=== PATIENT | male | born 1945 | race Caucasian/White ===

== ENCOUNTER 2018-04-17 12:52 | Outpatient (CLI) | payer MEDICARE ==
[2018-04-17 15:17] LABS: Hemoglobin 13.1 g/dL (14.0-18.0); Mean Corpuscular HGB CONC 35.7 g/dL (32.0-36.0); Mean Corpuscular Hemoglobin 32.4 pg (27.0-31.0); Mean Corpuscular Volume 90.9 fL (78.0-98.0); Mean Platelet Volume 6.3 fL (7.4-10.4); Platelet Count 378 thou/uL (130-400); RBC Distribution Width 11.4 % (11.5-14.5); Red Blood Cell (RBC) Count 4.04 mill/uL (4.70-6.10); White Blood Cell (WBC) Count 7.3 thou/uL (4.8-10.8)
[2018-04-17 15:24] LABS: INR-International Normal Ratio 0.9; PTT 33.1 SEC (22.9-36.1); Prothrombin Time 12.6 SEC (12.0-14.7)
[2018-04-17 15:32] LABS: Bilirubin Negative (Negative); Blood, Urine Negative (Negative); Clarity CLEAR (Clear); Glucose, Urine (Dipstick) Negative (Negative); Leukocyte Negative (Negative); Nitrite Negative (Negative); Protein, Urine (Dipstick) Negative (Neg-Trace); Specific Gravity, Urine 1.022 (1.002-1.036); Urobilinogen 0.2 mg/dL (0.2-1.0)
[2018-04-17 15:35] LABS: Anion Gap 15 mmol/L (10-20); BUN (Urea Nitrogen) 15 mg/dL (8.4-25.7); Calc. Creatinine Clearance 0 mL/min (70-130); Calcium 9.8 mg/dL (7.8-10.44); Carbon Dioxide 26 mmol/L (23-31); Chloride 95 mmol/L (98-107); Estimated GFR-MDRD 67; Glucose 112 mg/dL (83-110); Potassium 4.8 mmol/L (3.5-5.1); Sodium 131 mmol/L (136-145)
[2018-04-17 15:37] LABS: Bacteria/HPF None Seen HPF (None Seen); RBC/HPF 0-3 HPF (0-3); Squamous Epithelial 0-3 HPF (0-3); WBC/HPF 0-3 HPF (0-3)
[2018-04-17 15:44] LABS: Pathc Cast-AUWi Flag 3.19 (0-2.49)
[2018-04-17 15:53] LABS: Hyaline Casts/LPF 0-3 HYALINE CAST LPF (0-3 Hyaline); Manual Microscopic Reviewed? No Path Casts Seen; Renal Epithelial None Seen HPF (0-3); Transitional Epithelial NONE SEEN HPF (0-3)
--- NOTE | 2018-04-21 10:06 | EKG ---
Test Reason : Blood Pressure : / mmHG Vent. Rate : 075 BPM Atrial Rate : 075 BPM P-R Int : 170 ms QRS Dur : 144 ms QT Int : 406 ms P-R-T Axes : 066 -76 030 degrees QTc Int : 453 ms Normal sinus rhythm Right bundle branch block Left anterior fascicular block Bifascicular block Abnormal ECG No previous ECGs available Confirmed by DR. Gunjan PATTEN ([id number]) on 04/21/2018 10:06:19 AM Referred By: HARSH Confirmed By:DR. Gunjan PATTEN
== END 2018-04-17 12:53 | disposition home or self-care (01) ==
LOC: LABBT 12:52
PROVIDERS: ATTEND Urology
DX: Z01.818 Encounter for other preprocedural examination (principal); I25.10 Atherosclerotic heart disease of native coronary artery without angina pectoris; N40.1 Benign prostatic hyperplasia with lower urinary tract symptoms; N52.01 Erectile dysfunction due to arterial insufficiency; E11.59 Type 2 diabetes mellitus with other circulatory complications; Z95.5 Presence of coronary angioplasty implant and graft
CPT/HCPCS: 80048; 81001; 85027; 85610; 85730; 87086; 93005; 93010

== ENCOUNTER 2018-04-24 09:31 | Observation (INO) | payer MEDICARE ==
[2018-04-24] MEDS ORDERED: Ondansetron HCl/PF 4 MG/2 ML Vial ONE (10:23)
[2018-04-24] MEDS ORDERED: Dexamethasone 20 MG/5 ML VIAL ONE (10:23)
[2018-04-24] MEDS ORDERED: PROPOFOL 200 MG/20 ML VIAL ONE (10:23)
[2018-04-24] MEDS ORDERED: Lidocaine 1% PF 5 ML VIAL ONE (10:23)
[2018-04-24] MEDS ORDERED: Midazolam HCl 2 mg/2 ml Vial ONE (11:50)
[2018-04-24] MEDS ORDERED: Ketamine 50 MG/ML VIAL ONE (11:50)
[2018-04-24] MEDS ORDERED: Levofloxacin 500 mg/D5W 100 ml Premix Bag ONE (11:58)
[2018-04-24] MEDS ORDERED: Oxybutynin 5 MG TAB PO PRN (13:09)
[2018-04-24] MEDS ORDERED: Acetaminophen 500 MG TAB PO PRN (13:09)
[2018-04-24] MEDS ORDERED: diphenhydrAMINE 25 MG CAP PO PRN (13:09)
[2018-04-24] MEDS ORDERED: Hyoscyamine Sulfate SL 0.125 mg Tablet SL PRN (13:09)
[2018-04-24] MEDS ORDERED: Mag-Al 1200 mg/1200 mg/30 ML UDCUP PO PRN (13:09)
[2018-04-24] MEDS ORDERED: Bisacodyl 10 MG SUPP PR PRN (13:09)
[2018-04-24] MEDS ORDERED: Ondansetron HCl/PF 4 MG/2 ML Vial IVP PRN (13:09)
[2018-04-24] MEDS ORDERED: Morphine 4 MG/ML Carpuject IVP PRN (13:09)
[2018-04-24] MEDS ORDERED: traMADol HCl 50 MG TAB PO PRN (13:14)
[2018-04-24] MEDS ORDERED: Dextrose 5% in Water 1,000 ML IV PRN (13:15)
[2018-04-24] MEDS ORDERED: HumaLOG 300 UNITS/3 ML VIAL SC PRN (13:15)
[2018-04-24] MEDS ORDERED: Dextrose 50% Abboject 50 ML SYRINGE SLOW IVP PRN (13:15)
[2018-04-24] MEDS ORDERED: Acetaminophen 650 MG/20.3 ML UDCUP PO PRN (13:16)
--- NOTE | 2018-04-24 13:24 | OP ---
DATE OF PROCEDURE: 04/24/2018 SERVICE: Urology. SURGEON: Gm Santillan M.D. PREOPERATIVE DIAGNOSIS: Benign prostatic hypertrophy with bladder outlet obstruction. POSTOPERATIVE DIAGNOSIS: Benign prostatic hypertrophy with bladder outlet obstruction. PROCEDURE PERFORMED: Transurethral vaporization of the prostate. INDICATIONS FOR PROCEDURE: Mr. Desai is a 73-year-old white male with BPH and difficulty urinatin g. He is already on Flomax and finasteride without adequate relief of symptoms. He does not wish to remain on medications forever. We discussed surgical interventions and he has agreed to proceed for randall. He has received his cardiac clearance and has stopped his aspirin and Plavix. DESCRIPTION OF PROCEDURE: After identification of arm and verification of consent, the patient was b rought to the operating room, he was given general anesthesia with an LMA. He was then placed in tosha lalito lithotomy position, prepped and draped in usual sterile fashion. After appropriate timeout, a bobbi bricated 26 [place] resectoscope sheath with visual obturator was placed per urethra into the bladder. The visual obturator switched out for the bipolar button electrode. A full cystoscopy was performe d which did not demonstrate any abnormalities within the bladder. Both ureters were far away from th e bladder neck. Vaporization was started at the bladder neck and carried out to the verumontanum cir cumferentially until all the prostate tissue was removed. We were close to the capsule, but not to i t. Relaxing incisions were made at 5 and 7 o'clock on the bladder neck which was very tight. This c reated a very wide bladder neck. The intervening tissue was then vaporized out. Meticulous hemostas is was then performed and upon completion, the prostate was wide open with a resection of a large por tion of the majority of the prostate. There was good hemostasis. Both ureters were in the orthotopi c location unharmed. The resectoscope was then removed and a 20 [place] 3-way Ernee catheter was plac ed into the bladder with 30 mL of sterile water in the balloon. CBI was initiated and secured with a StatLock. The patient then awakened and taken to PACU for recovery in stable condition. COMPLICATIONS: None. ESTIMATED BLOOD LOSS: Minimal. RETAINED TUBES AND DRAINS: A 20 [place] 3-way Renee catheter on slow CBI. SPECIMENS: None. DISPOSITION: The patient will stay in the hospital overnight and be discharged tomorrow after his vo id trial.
[2018-04-24 16:11] VITALS: BMI 23.5
[2018-04-24] MEDS ORDERED: ICOSAPENT ETHYL 2 GM PO SCH (17:00)
[2018-04-24] MEDS ORDERED: Prevnar 13-Val Conj/PF 0.5 ML SYRINGE IM ONE (17:15)
[2018-04-24] MEDS: OXcarbazepine 300 MG TAB PO SCH (19:50)
[2018-04-24] MEDS: metFORMIN 500 MG TAB PO SCH (19:51)
[2018-04-24] MEDS: Ferrous Sulfate 325 MG TAB PO SCH (19:51)
[2018-04-24] MEDS ORDERED: Atorvastatin Calcium 40 MG TAB PO SCH (21:00)
[2018-04-24] MEDS ORDERED: Escitalopram Oxalate 20 mg Tablet PO SCH (21:00)
[2018-04-24] MEDS ORDERED: clonazePAM 0.5 MG TAB PO SCH (21:00)
[2018-04-25 05:40] LABS: #Lymphocytes 1.5 thou/uL (1.20-3.40); #Neutrophils 11.3 thou/uL (1.40-6.50); %Basophils 0.3 % (0.0-1.0); %Eosinophils 0.3 % (0.0-10.0); %Lymphocytes 10.6 % (21.0-51.0); %Monocytes 7.2 % (0.0-10.0); %Neutrophils 81.7 % (42.0-75.0); Hemoglobin 13.4 g/dL (14.0-18.0); Mean Corpuscular HGB CONC 33.6 g/dL (32.0-36.0); Mean Corpuscular Hemoglobin 30.4 pg (27.0-31.0); Mean Corpuscular Volume 90.4 fL (78.0-98.0); Mean Platelet Volume 6.2 fL (7.4-10.4); Platelet Count 421 thou/uL (130-400); RBC Distribution Width 11.3 % (11.5-14.5); Red Blood Cell (RBC) Count 4.39 mill/uL (4.70-6.10); White Blood Cell (WBC) Count 13.9 thou/uL (4.8-10.8)
[2018-04-25 05:47] LABS: Anion Gap 12 mmol/L (10-20); BUN (Urea Nitrogen) 14 mg/dL (8.4-25.7); Calc. Creatinine Clearance 97 mL/min (70-130); Calcium 9.7 mg/dL (7.8-10.44); Carbon Dioxide 26 mmol/L (23-31); Chloride 95 mmol/L (98-107); Estimated GFR-MDRD Greater than 90; Glucose 112 mg/dL (83-110); Potassium 4.3 mmol/L (3.5-5.1); Sodium 129 mmol/L (136-145)
[2018-04-25] MEDS ORDERED: Levothyroxine Sodium 25 MCG TAB PO SCH (06:00)
[2018-04-25] MEDS: metFORMIN 500 MG TAB PO SCH (08:57)
[2018-04-25] MEDS: Ferrous Sulfate 325 MG TAB PO SCH (08:58)
[2018-04-25] MEDS: OXcarbazepine 300 MG TAB PO SCH (08:59)
[2018-04-25] MEDS ORDERED: lamoTRIgine 100 MG TAB PO SCH (09:00)
[2018-04-25] MEDS ORDERED: Amlodipine 5 MG TAB PO SCH (09:00)
[2018-04-25] MEDS ORDERED: Polyethylene Glycol 3350 17 GM Packet PO SCH (09:00)
[2018-04-25 12:20] VITALS: BP 145/70; TEMP 97.5
--- NOTE | 2018-04-25 15:53 | PRG ---
DATE OF SERVICE: 04/25/2018 SUBJECTIVE: The patient states he is feeling really good. He did have some trouble falling asleep l ast night, but otherwise has had no other complaints. He denies any chest pain, shortness of breath, or bladder spasms. OBJECTIVE: VITAL SIGNS: Temperature 97.5, pulse 65, respirations 16, blood pressure 145/70, saturation 99% on r oom air. GENERAL: No apparent distress, communicative, and alert. CARDIOVASCULAR: Regular rate and rhythm. ABDOMEN: Soft, nontender, nondistended, positive bowel sounds. GENITOURINARY: Renee catheter in place with CBI off. Urine is completely yellow. EXTREMITIES: No clubbing, cyanosis or edema. SCDs in place. LABORATORY DATA: The full set of labs in the [facility] system, which I reviewed. Of note, patient's white count of 13.9 with hemoglobin 13.4 and creatinine of 0.8, sodium is slightly decreased to 129. ASSESSMENT AND PLAN: This is a 73-year-old white male with BPH and lower urinary tract symptoms stat us post transurethral vaporization of the prostate. Postoperative day #1, doing very well. He has r ecovered quite well. He is a little hyponatremic, but I do not think this is overly concerning. I w ill check with Dr. Bernard to ensure that he is not concerned about anything as that is his primary nephr ologist. We will perform a void trial and serial urine collection. Discharge will be pending the re sults of his void trial and what Dr. Bernard says.
--- NOTE | 2018-04-25 23:03 | DIS ---
DATE OF ADMISSION: 04/24/2018 DATE OF DISCHARGE: 04/25/2018 ADMITTING DIAGNOSES: Benign prostatic hyperplasia with lower urinary tract symptoms. DISCHARGE DIAGNOSES: Benign prostatic hyperplasia with lower urinary tract symptoms and hyponatremia . PROCEDURE PERFORMED WHILE INPATIENT: Transurethral vaporization of the prostate. BRIEF HISTORY: Mr. Desai is a 73-year-old white male, who initially came to see me for BPH and vo iding issues. He elected to undergo a transurethral vaporization of the prostate, so that he could g et off of his prostate medications. Risks and benefits have previously been discussed and he has agr eed to proceed to go forward. The full H and P can be found in the [email or web address]. HOSPITAL COURSE: After surgery (please see operative note for details), the patient was admitted to the hospital for CBI and for his hematuria. The hematuria cleared very rapidly and he did very well without any problems overnight. He denied any altered mental status, bladder spasms, or any other is sues. In the morning, his urine was completely clear with the CBI off. He underwent a void trial wi th several voids, which were extremely clear, and hardly any blood. He felt his stream was good. He had minimal pain. His sodium was slightly decreased to 129. He chronically has low sodium that nor peggy runs between 133 and 131. I spoke with Dr. Bernard, his marble mason, about these lab values and h e stated he was not overly concerned about it and stated that he recommended the patient be on fluid restrictions to 1.5 liters per day and follow up with him as an outpatient. I have relayed this info rmation to the patient and he states he will follow up with Dr. Bernard and call him early part of next w ruby for a followup appointment. From my standpoint, he looks excellent and can be discharged home. DISPOSITION: Discharge to home. DISCHARGE CONDITION: Stable. DISCHARGE INSTRUCTIONS: Include no heavy lifting, no strenuous activity, avoid constipation, avoid a ny activity, which push pressure on the prostate area such as riding a bike. He should notify me for fevers over 101, significant amounts of blood in the urine or clot retention, inability to void, or any other concerning signs or symptoms the patient may have. His followup with me is in approximatel y 1-2 weeks for a postop check and he will also follow up with Dr. Bernard as I had instructed.
== END 2018-04-25 14:53 | disposition home or self-care (01) ==
LOC: SDC 09:31 → SJJU 15:28
PROVIDERS: ADMIT Urology; ATTEND Urology
PROC: 0VT08ZZ Resection of Prostate, Via Natural or Artificial Opening Endoscopic (ICD-10-PCS; principal; 2018-04-24)
DX: N40.1 Benign prostatic hyperplasia with lower urinary tract symptoms (principal); N13.8 Other obstructive and reflux uropathy; I25.10 Atherosclerotic heart disease of native coronary artery without angina pectoris; E11.9 Type 2 diabetes mellitus without complications; Z85.72 Personal history of non-Hodgkin lymphomas; Z79.84 Long term (current) use of oral hypoglycemic drugs; Z79.02 Long term (current) use of antithrombotics/antiplatelets; Z79.82 Long term (current) use of aspirin; Z79.899 Other long term (current) drug therapy; Z95.5 Presence of coronary angioplasty implant and graft
CPT/HCPCS: 52648; 80048; 82962 ×2; 85025; 96365; G0378; 36415; 36416; J1100; J1956; J2001; J2250; J2405; J2704

== ENCOUNTER 2019-08-27 13:49 | Outpatient (CLI) | payer MEDICARE ==
[2019-08-27] MEDS ORDERED: Iopamidol 370 76% 100 ML VIAL ONE (14:34)
--- NOTE | 2019-08-27 17:02 | CT ---
CT CHEST, ABDOMEN AND PELVIS WITH IV CONTRAST: 08/27/19 Oral contrast was also given. Multiplanar reconstruction. INDICATIONS: History of lymphoma x10 years. There are no prior studies available. CT CHEST: The lung prado are well aerated and clear. There is no evidence of effusion, infiltrate, or mass. The mediastinum is unremarkable. No adenopathy. Thoracic aorta shows mild atherosclerotic change. No aneurysm. There are calcified nodes in the paratracheal region on the right, possibly representing ol d treated lymphoma. No evidence of axillary adenopathy. There are small nonspecific axillary lymph nodes seen. The osseou s structures are unremarkable. IMPRESSION: 1. No acute chest finding. No evidence of adenopathy. CT ABDOMEN AND PELVIS: Liver, spleen and pancreas unremarkable. Adrenal glands normal. Stomach and duodenum unremarkable. Kidneys unremarkable. There is a low density cystic lesion in the posterior cortex in the left kidney measuring up to 2.0 cm. The urinary bladder is unremarkable. Small bowel loops appear normal. Colon unremarkable. The aorta normal caliber. No abdominal adenopath y identified. Images through the pelvis show unremarkable prostate. Osseous structures are unremarkab le. IMPRESSION: No evidence of acute process. POS: [facility]
== END 2019-08-27 13:50 | disposition home or self-care (01) ==
LOC: BICCT 13:49
DX: Z08 Encounter for follow-up examination after completed treatment for malignant neoplasm (principal); Z85.72 Personal history of non-Hodgkin lymphomas
CPT/HCPCS: 71260; 74177; Q9967

== ENCOUNTER 2021-05-22 13:38 | Outpatient (CLI) | payer MEDICARE | END 2021-05-22 13:39 | disposition home or self-care (01) | LOC: BICRAD 13:38 | PROVIDERS: ATTEND Nurse Practitioner Family | DX: M79.18 Myalgia, other site (principal); M47.816 Spondylosis without myelopathy or radiculopathy, lumbar region | CPT/HCPCS: 72100 ==

== ENCOUNTER 2021-09-22 07:46 | Outpatient (CLI) | payer MEDICARE ==
[2021-09-22] MEDS ORDERED: Iopamidol-370 76% 500 ML 1 ML ONE (09:21)
== END 2021-09-22 07:47 | disposition home or self-care (01) ==
LOC: BICCT 07:46
PROVIDERS: ATTEND Family Medicine
DX: C85.80 Other specified types of non-Hodgkin lymphoma, unspecified site (principal); I25.10 Atherosclerotic heart disease of native coronary artery without angina pectoris; N28.1 Cyst of kidney, acquired; K59.00 Constipation, unspecified
CPT/HCPCS: 71260; 74177; Q9967

== ENCOUNTER 2022-01-11 09:55 | Outpatient (CLI) | payer MEDICARE | END 2022-01-11 09:56 | disposition home or self-care (01) | LOC: BICRAD 09:55 | PROVIDERS: ATTEND Family Medicine | DX: R05.9 Cough, unspecified (principal) | CPT/HCPCS: 71046 ==

== ENCOUNTER 2022-07-16 07:33 | Outpatient (CLI) | payer MEDICARE ==
[2022-07-16] MEDS ORDERED: Iopamidol-370 76% 500 ML 1 ML ONE (11:11)
== END 2022-07-16 07:34 | disposition home or self-care (01) ==
LOC: BICCT 07:33
PROVIDERS: ATTEND Orthopaedic Surgery Sports Medicine
DX: C80.1 Malignant (primary) neoplasm, unspecified (principal)
CPT/HCPCS: 71260; 74177; 82565

== ENCOUNTER 2023-03-07 13:52 | Outpatient (CLI) | payer MEDICARE | END 2023-03-07 13:53 | disposition home or self-care (01) | LOC: SCSMRI 13:52 | PROVIDERS: ATTEND Nurse Practitioner Family | DX: M47.26 Other spondylosis with radiculopathy, lumbar region (principal); M47.817 Spondylosis without myelopathy or radiculopathy, lumbosacral region; M48.061 Spinal stenosis, lumbar region without neurogenic claudication | CPT/HCPCS: 72148 ==

== ENCOUNTER 2023-06-19 09:26 | Outpatient (CLI) | payer MEDICARE | END 2023-06-19 09:27 | disposition home or self-care (01) | LOC: SCSMRI 09:26 | PROVIDERS: ATTEND Psychiatry & Neurology Neurology | DX: R41.3 Other amnesia (principal); G93.89 Other specified disorders of brain | CPT/HCPCS: 70553 ==

== ENCOUNTER 2023-07-18 08:26 | Day surgery (SDC) | payer MEDICARE ==
[2023-07-16 13:06] VITALS: BMI 23.7
[2023-07-18 09:44] LABS: Hematocrit 34.6 % (42.0-52.0); Hemoglobin 11.6 g/dL (14.0-18.0); Manual Diff?? YES; Mean Corpuscular HGB CONC 33.5 g/dL (32.0-36.0); Mean Corpuscular Hemoglobin 31.2 pg (27.0-31.0); Mean Platelet Volume 8.3 fL (7.4-10.4); Platelet Count 315 10x3/uL (130-400); RBC Distribution Width 12.3 % (11.5-14.5); Red Blood Cell (RBC) Count 3.72 mill/uL (4.70-6.10); White Blood Cell (WBC) Count 19.1 10x3/uL (4.8-10.8)
[2023-07-18] MEDS ORDERED: Fentanyl 250 MCG/5 ML VIAL ONE (09:44)
[2023-07-18] MEDS ORDERED: Dexamethasone 4 mg/ml Vial ONE (09:44)
[2023-07-18] MEDS ORDERED: PROPOFOL 20 ML ONE (09:44)
[2023-07-18] MEDS ORDERED: Rocuronium Bromide 10 MG/ML (10ML VIAL) ONE ×2 (09:44→11:04)
[2023-07-18] MEDS ORDERED: Lidocaine 2% PF 5 ML VIAL ONE (09:44)
[2023-07-18] MEDS ORDERED: Ondansetron PF 4 MG/2 ML Vial ONE ×2 (09:44→11:04)
[2023-07-18 09:52] LABS: Delete Auto Diff?? YES
[2023-07-18 10:04] LABS: INR-International Normal Ratio 0.9; PTT 30.6 sec (22.9-36.1); Prothrombin Time 12.5 sec (12.0-14.7)
[2023-07-18 10:07] LABS: Anion Gap 13 mmol/L (10-20); BUN (Urea Nitrogen) 19 mg/dL (8.4-25.7); Calc. Creatinine Clearance 70 mL/min (70-130); Calcium 9.1 mg/dL (7.8-10.44); Carbon Dioxide 23 mmol/L (23-31); Chloride 98 mmol/L (98-107); Estimated GFR 74; Glucose 117 mg/dL (83-110); Potassium 4.4 mmol/L (3.5-5.1); Sodium 130 mmol/L (136-145)
[2023-07-18] MEDS ORDERED: Thrombin 5000 UNITS/5 ML VIAL ONE (10:32)
[2023-07-18] MEDS ORDERED: Vancomycin 1 GM VIAL ONE (10:32)
[2023-07-18] MEDS ORDERED: Bupivacaine PF 0.5% 30 ML VIAL ONE (10:32)
[2023-07-18] MEDS ORDERED: EPINEPHrine 1 MG/ML VIAL ONE (10:32)
[2023-07-18 10:37] LABS: CellaVision Operator ID LAB.GE; Lymphocytes 55 % (21-51); Monocytes 5 % (0-10); Neutrophil 33 % (42-75); Platelet Adequacy Comment Platelets Normal; Polychromasia SLIGHT = 2-3 cells HPF (0-2); Reactive Lymphocytes 5 % (0-10); Total Cell Count 100
[2023-07-18] MEDS ORDERED: SUGAMMADEX SODIUM 200 MG/2 ML VIAL ONE (10:41)
[2023-07-18] MEDS ORDERED: Sodium Chloride 0.9% 100 ML ONE (10:51)
[2023-07-18] MEDS ORDERED: CEFAZOLIN 2 GM VIAL ONE (10:51)
[2023-07-18] MEDS ORDERED: PROPOFOL 200 MG/20 ML VIAL ONE (11:04)
[2023-07-18] MEDS ORDERED: Lidocaine 1% PF 5 ML VIAL ONE (11:04)
[2023-07-18] MEDS ORDERED: ePHEDrine Sulfate 50 MG/10 ML VIAL ONE ×2 (11:04→11:58)
[2023-07-18] MEDS ORDERED: Dexamethasone 20 MG/5 ML VIAL ONE (11:04)
[2023-07-18] MEDS ORDERED: HYDROmorphone 2 MG/ML VIAL SLOW IVP PRN (11:33)
[2023-07-18] MEDS ORDERED: Ondansetron HCl/PF 4 MG/2 ML Vial IVP PRN (11:33)
[2023-07-18] MEDS ORDERED: Promethazine HCl 25 MG/ML VIAL IM PRN (11:33)
[2023-07-18] MEDS ORDERED: fentaNYL 50 mcg/mL 1 mL Vial ONE ×2 (13:15→13:31)
[2023-07-18] MEDS ORDERED: Tamsulosin HCl 0.4 MG CAP ONE (13:31)
== END 2023-07-18 16:07 | disposition home or self-care (01) ==
LOC: SDC 08:26
PROVIDERS: ATTEND Neurological Surgery
PROC: 00NY0ZZ Release Lumbar Spinal Cord, Open Approach (ICD-10-PCS; principal; 2023-07-18)
DX: M48.062 Spinal stenosis, lumbar region with neurogenic claudication (principal); M71.38 Other bursal cyst, other site; E03.9 Hypothyroidism, unspecified; E78.5 Hyperlipidemia, unspecified; K21.9 Gastro-esophageal reflux disease without esophagitis; E55.9 Vitamin D deficiency, unspecified; I63.29 Cerebral infarction due to unspecified occlusion or stenosis of other precerebral arteries; C85.90 Non-Hodgkin lymphoma, unspecified, unspecified site; F03.90 Unspecified dementia, unspecified severity, without behavioral disturbance, psychotic disturbance, mood disturbance, and anxiety; I20.0 Unstable angina; E11.42 Type 2 diabetes mellitus with diabetic polyneuropathy; I10 Essential (primary) hypertension; Z87.891 Personal history of nicotine dependence; Z79.84 Long term (current) use of oral hypoglycemic drugs; Z79.82 Long term (current) use of aspirin; Z79.890 Hormone replacement therapy; Z79.899 Other long term (current) drug therapy
CPT/HCPCS: 63267; 80048; 85025; 85610; 85730; J0171; J3010; 88304; J1100; J2001; J2405; J2704; J3370; J3490; S0020

== ENCOUNTER 2023-08-27 20:18 | Emergency (ER) | payer MEDICARE ==
[2023-08-27 21:19] LABS: Hematocrit 33.7 % (42.0-52.0); Hemoglobin 11.3 g/dL (14.0-18.0); Manual Diff?? YES; Mean Corpuscular HGB CONC 33.5 g/dL (32.0-36.0); Mean Corpuscular Hemoglobin 30.5 pg (27.0-31.0); Mean Corpuscular Volume 90.8 fl (78.0-98.0); Mean Platelet Volume 8.2 fL (7.4-10.4); Platelet Count 368 10x3/uL (130-400); RBC Distribution Width 12.7 % (11.5-14.5); Red Blood Cell (RBC) Count 3.71 mill/uL (4.70-6.10); White Blood Cell (WBC) Count 27.3 10x3/uL (4.8-10.8)
[2023-08-27 21:25] LABS: Delete Auto Diff?? YES
[2023-08-27 21:42] LABS: ALT (SGPT) 8 U/L (8-55); AST (SGOT) 13 U/L (5-34); Albumin 4.3 g/dL (3.4-4.8); Alkaline Phosphatase 97 U/L (40-110); Anion Gap 15 mmol/L (10-20); BUN (Urea Nitrogen) 12 mg/dL (8.4-25.7); Bilirubin, Total 0.5 mg/dL (0.2-1.2); Calc. Creatinine Clearance 0 mL/min (70-130); Calcium 9.1 mg/dL (7.8-10.44); Carbon Dioxide 23 mmol/L (23-31); Chloride 99 mmol/L (98-107); Estimated GFR 89; Globulin 2.3 g/dL (2.4-3.5); Glucose 100 mg/dL (83-110); Potassium 4.3 mmol/L (3.5-5.1); Protein, Total 6.6 g/dL (5.8-8.1); Sodium 133 mmol/L (136-145)
[2023-08-27 21:54] LABS: Band 2 % (5-11); CellaVision Operator ID LAB.CLH1; Eosinophils 1 % (0-10); Hypochromia SLIGHT = 6-15 cells HPF (0-5); Lymphocytes 48 % (21-51); Monocytes 8 % (0-10); Neutrophil 36 % (42-75); Platelet Adequacy Comment Platelets Normal; Reactive Lymphocytes 3 % (0-10); Total Cell Count 102
[2023-08-27 21:55] LABS: Troponin I Less than 0.010 ng/mL (< 0.028)
== END 2023-08-27 22:32 | disposition home or self-care (01) ==
LOC: ERS 20:18
DX: I10 Essential (primary) hypertension (principal); D72.829 Elevated white blood cell count, unspecified; I45.2 Bifascicular block; E11.9 Type 2 diabetes mellitus without complications; Z87.891 Personal history of nicotine dependence
CPT/HCPCS: 36415; 80053; 84484; 85025; 93005